=== PATIENT | female | born 1980 | race Caucasian/White ===

== ENCOUNTER 2018-08-01 19:51 | Emergency (ER) | payer OTHER ==
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
[2018-08-01] MEDS: diphenhydrAMINE HCL 50 MG/ML VIAL IV ONE (21:26)
[2018-08-01] MEDS: MORPHINE SULFATE INJ 10 MG/ML VIAL IV ONE ×2 (21:27→23:29)
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
[2018-08-01] MEDS ORDERED: CHLORHEXIDINE GLUCONATE 4 % 15 ML UD TOP ONE (21:41)
[2018-08-01] MEDS ORDERED: LIDOCAINE 1% 10 ML VIAL INJ ONE (21:41)
[2018-08-01] MEDS ORDERED: LIDOCAINE 1% W/ EPINEPHRINE 20 ML VIAL INJ ONE (21:43)
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
[2018-08-01] MEDS: TETANUS,DIPHTHERIA,PERTUSSIS 1 EA SYG IM ONE (22:56)
[2018-08-01] MEDS ORDERED: cefTRIAXone SODIUM 1 GM VIAL ONE (23:27)
[2018-08-01] MEDS ORDERED: SODIUM CHL 0.9% 50ML MIN-BAG+ 50 ML IVPB ONE (23:27)
[2018-08-01] MEDS: cefTRIAXone SODIUM 1 GM in SODIUM CHL 0.9% 50ML MIN-BAG+ 50 ML IVPB ONE (23:30)
[2018-08-01] MEDS ORDERED: VANCOMYCIN HCL INJ 1,000 MG VIAL IVPB ONE (23:37)
[2018-08-01] MEDS ORDERED: SODIUM CHLORIDE 0.9% 250ML 250 ML ONE (23:37)
[2018-08-01] MEDS: VANCOMYCIN HCL INJ 1,000 MG in SODIUM CHLORIDE 0.9% 250ML 250 ML IVPB ONE (23:40)
[2018-08-01 23:50] VITALS: O2SAT 98
[2018-08-02 00:01] VITALS: BP 91/64; TEMP 99.7
== END 2018-08-02 00:11 | disposition short-term general hospital (02) ==
LOC: ER 19:51
DX: S02.0XXB Fracture of vault of skull, initial encounter for open fracture (principal); M25.511 Pain in right shoulder; M79.621 Pain in right upper arm; M79.631 Pain in right forearm; M79.641 Pain in right hand; Z23 Encounter for immunization; Y00.XXXA Assault by blunt object, initial encounter; Y92.149 Unspecified place in prison as the place of occurrence of the external cause
CPT/HCPCS: 70450; 70486; 72125; 73030; 73060; 73080; 73090; 73130; 80048; 84703; 85025; 85610; 85730; 90471; 90715; J0696; J1200; J2270; J3370; J7050

== ENCOUNTER → 2018-09-07 | Outpatient (CLI) | payer OTHER ==
--- NOTE | 2018-09-07 09:36 | RAD ---
Lumbar spine 5 views INDICATION: Low back pain IMPRESSION: Prominent stool throughout the colon. Bones are osteopenic although this may be technical. No pars defect. Normal alignment. No significant disc height loss. No destructive lesion. Electronically signed by: Fabrice Calderón MD 09/07/2018 9:34 AM CDT
== END ==
LOC: YCFC.O 08:55
PROVIDERS: ATTEND Family Medicine
DX: M54.5 Low back pain (principal)